=== PATIENT | male | born 1990 | race Caucasian/White ===

== ENCOUNTER 2016-10-04 13:50 | Day surgery (SDC) | payer OTHER ==
--- NOTE | 2016-10-04 14:41 | EDM.PDOC ---
ED HPI Trauma - General Chief Complaint: Upper Extremity Injury/Pain Stated Complaint: RIGHT HAND INJURY Time Seen by Provider: 10/04/16 14:28 Source: Reports: Patient History Limitations: Reports: No limitations - History of Present Illness INITIAL COMMENTS - FREE TEXT/NARRATIVE: 26-year-old male presents the ED with an acute injury to his right thumb. Of note he is right-hand dominant. Patient was at [place] on a work[place]. He reports that his right thumb became impinged between the hemant and a piece of toast and pipe IE crushtype injury. This resulted in a large laceration on the radial aspect of the thumb. Apparently the bone is easily visible suggesting an open fracture. Patient attended the occupational health clinic until a [place] and he did receive a tetanus toxoid was referred to the ED for further management. Symptom Onset Date: 10/04/16 Symptom Onset Time: 11:00 Occurred When: this morning Occurred Where: work Method of Injury: direct blow (Crushtype injury) Severity: moderate Pain/Injury Location: Reports: upper extremity, right (Right thumb) Consciousness: Reports: no loss of consciousness, remembers incident Associated Symptoms: Reports: no other symptoms Allergies/ADRs: Allergies No Known Allergies Allergy (Verified 10/04/16 13:56) Past Medical History - Past Health History Medical/Surgical History: Denies Medical/Surgical History Social & Family History - Tobacco Use Smoking Status *Q: Former Smoker - Caffeine Use Caffeine Use: Reports: Coffee - Recreational Drug Use Recreational Drug Use: No - Living Situation & Occupation Occupation: employed Review of Systems - Review of Systems Review Of Systems: See Below Constitutional: Reports: no symptoms Eyes: Reports: no symptoms Ears: Reports: no symptoms Nose: Reports: no symptoms Mouth/Throat: Reports: no symptoms Respiratory: Reports: No Symptoms Cardiovascular: Reports: no symptoms GI/Abdominal: Reports: No symptoms Genitourinary: Reports: no symptoms Musculoskeletal: Reports: no symptoms Skin: Reports: no symptoms Neurological: Reports: No Symptoms Psychiatric: Reports: no symptoms Trauma Exam - Physical Exam Exam: See Below Exam Limited By: No limitations General Appearance: Reports: alert, WD/WN, no apparent distress Head: Reports: atraumatic, normocephalic Throat/Mouth: Reports: Normal inspection, Normal lips, Normal teeth, Normal oropharynx, Other (Is a little dry and coated. He indicates he is not a diabetic much today.) Neck: Reports: non-tender, full range of motion, normal alignment Respiratory Exam: Reports: no respiratory distress, lungs clear, normal breath sounds, no accessory muscle use Cardiovascular: Reports: normal peripheral pulses, regular rate, rhythm, no edema, no murmur GI/Abdominal: Reports: normal bowel sounds, soft, non tender, no organomegaly Back: Reports: full range of motion. Denies: CVA tenderness (R), CVA tenderness (L) Extremities: Reports: no evidence of injury, other (Patient has a multilayered bandages on his right thumb. These were relieve removed after x-ray is completed.) Skin: Reports: Normal color, Warm/dry - [place] Coma Score Best Eye Response ([place]): (4) open spontaneously Best Verbal Response ([place]): (5) oriented Best Motor Response ([place]): (6) obeys commands Suzy Total: 15 Course - Vital Signs Last Recorded V/S: Last Vital Signs Temp 36.7 C 10/04/16 13:56 Pulse 64 10/04/16 13:56 Resp 18 10/04/16 16:24 BP 131/93 H 10/04/16 13:56 Pulse Ox 99 10/04/16 16:24 - Orders/Labs/Meds Orders: Active Orders 24 hr Category Date Time Status Admission Status [Patient Status] [ADT] Routine ADT 10/04/16 18:00 Ordered Peripheral IV Care [RC] . DIRECTED Care 10/04/16 15:15 Active Fingers Thumb Rt F5 [CR] Stat Exams 10/04/16 14:32 Taken Dextrose 5%-0.9% NaCl [Dextrose 5%-Normal Saline] 1,000 Med 10/04/16 15:45 Active ml IV ASDIRECTED Sodium Chloride 0.9% [Saline Flush] Med 10/04/16 15:14 Active 10 ml FLUSH ASDIRECTED PRN Peripheral IV Insertion Adult [OM.PC] Stat Oth 10/04/16 15:14 Ordered Schedule Procedure [COMM] Stat Oth 10/04/16 18:01 Ordered Medication Orders Dextrose/Sodium Chloride (Dextrose 5%-Normal Saline) 1,000 mls @ 999 mls/hr IV ASDIRECTED FRANTZ Last Admin: 10/04/16 16:38 Dose: 999 mls/hr Sodium Chloride (Saline Flush) 10 ml FLUSH ASDIRECTED PRN PRN Reason: Keep Vein Open Last Admin: 10/04/16 16:45 Dose: 10 ml Meds: Medications Generic Name Dose Route Start Last Admin Trade Name Freq PRN Reason Stop Dose Admin Dextrose/Sodium Chloride 1,000 mls @ 999 mls/hr 10/04/16 15:45 10/04/16 16:38 Dextrose 5%-Normal Saline IV 999 mls/hr ASDIRECTED FRANTZ Administration Sodium Chloride 10 ml 10/04/16 15:14 10/04/16 16:45 Saline Flush FLUSH 10 ml ASDIRECTED PRN Administration Keep Vein Open Discontinued Medications Generic Name Dose Route Start Last Admin Trade Name Freq PRN Reason Stop Dose Admin Hydromorphone HCl 0.5 mg 10/04/16 15:31 10/04/16 16:42 Dilaudid IVPUSH 10/04/16 15:32 0.5 mg ONETIME ONE Administration Cefazolin Sodium/Dextrose 2 gm 50 mls @ 100 mls/hr 10/04/16 15:15 10/04/16 16 :46 / Premix IV 10/04/16 15:44 100 mls/hr ONETIME ONE Administration Lidocaine HCl Confirm 10/04/16 16:06 Lidocaine 1% Administered 10/04/16 16:07 Dose 2 ml .ROUTE .STK-MED ONE Metoclopramide HCl 7.5 mg 10/04/16 15:31 10/04/16 16:40 Reglan IVPUSH 10/04/16 15:32 7.5 mg ONETIME ONE Administration - Radiology Interpretation Free Text/Narrative:: 26-year-old male presents the ED for for evaluation of work related injury. Suffered a crushtype injury to his distal right thumb this morning at about 11: 00. Pain is an open laceration with bone visible and suspicion of open fracture. The initially is bandaged up and I will leave it bandaged as it is actively bleeding until after x-rays have been completed. The wound will then be explored. - Re-Assessments/Exams Free Text/Narrative Re-Assessment/Exam: 10/04/16 15:16 x-ray reveals a comminuted fracture of the proximal phalanx right thumb. It is slight displacement volarly of some of the fragments. I did contact Dr. Krishnamurthy today application services manager orthopedic surgeon to see if he has interest in fixing this. When I removed the bandage there is an actively bleeding 2 cm laceration at the site of fracture of the ulnar aspect of the thumb. It is actively bleeding. New dressings will be applied. Also now have a peripheral IV started and he will be given Ancef 2 g IV. 10/04/16 15:32 Dr Montgomery called back and has agreed to repair the thumb. Plan will be to proceed with operative intervention after he is done his clinic which will be about an hour and a half. Patient hasn't ate at all today. I will therefore had an IV of D5 normal saline at open. We'll give him 0.5 mg Dilaudid IV for pain relief and Reglan 7.5 mg IV as well as the Ancef as mentioned above. Departure - Departure Time of Disposition: 17:00 Disposition: DC/Tfer to [facility] Condition: fair Clinical Impression: Open fracture of phalanx of right thumb Qualifiers: Encounter type: initial encounter Phalanx: proximal Fracture alignment: displaced Qualified Code(s): S62.511B - Displaced fracture of proximal phalanx of right thumb, initial encounter for open fracture - My Orders Last 24 Hours: My Active Orders 10/04/16 14:32 Fingers Thumb Rt F5 [CR] Stat 10/04/16 15:14 Sodium Chloride 0.9% [Saline Flush] 10 ml FLUSH ASDIRECTED PRN Peripheral IV Insertion Adult [OM.PC] Stat 10/04/16 15:15 Peripheral IV Care [RC] . DIRECTED 10/04/16 15:45 Dextrose 5%-0.9% NaCl [Dextrose 5%-Normal Saline] 1,000 ml IV ASDIRECTED 10/04/16 18:00 Admission Status [Patient Status] [ADT] Routine - Assessment/Plan Last 24 Hours: My Active Orders 10/04/16 14:32 Fingers Thumb Rt F5 [CR] Stat 10/04/16 15:14 Sodium Chloride 0.9% [Saline Flush] 10 ml FLUSH ASDIRECTED PRN Peripheral IV Insertion Adult [OM.PC] Stat 10/04/16 15:15 Peripheral IV Care [RC] . DIRECTED 10/04/16 15:45 Dextrose 5%-0.9% NaCl [Dextrose 5%-Normal Saline] 1,000 ml IV ASDIRECTED 10/04/16 18:00 Admission Status [Patient Status] [ADT] Routine
[2016-10-04] MEDS ORDERED: Sodium Chloride 0.9% 10 ML Syringe FLUSH PRN (15:14)
[2016-10-04] MEDS ORDERED: ceFAZolin 2 GM in Premix Bag 1 BAG IV ONE (15:15)
[2016-10-04] MEDS ORDERED: HYDROmorphone 0.5 MG/0.5 ML Syringe IVPUSH ONE (15:31)
[2016-10-04] MEDS ORDERED: Metoclopramide 10 MG/2 ML SDV IVPUSH ONE (15:31)
[2016-10-04] MEDS ORDERED: Dextrose 5%-0.9% NaCl 1,000 ML IV SCH (15:45)
[2016-10-04] MEDS ORDERED: Lidocaine 1% 2 ML SDV ONE (16:06)
--- NOTE | 2016-10-04 16:23 | PCM.PREANE ---
Preanesthetic Assessment - Procedure Proposed Procedure: I&D and ORIF/Pinning right thumb - Anesthesia/Transfusion/Family Hx Anesthesia History: No Prior Anesthesia Family History of Anesthesia Reaction: No - Review of Systems General: No Symptoms Pulmonary: No Symptoms Cardiovascular: No Symptoms Gastrointestinal: No symptoms Neurological: No Symptoms Other: Reports: None - Physical Assessment NPO Status Date: 10/03/16 NPO Status Time: 21:00 O2 Sat by Pulse Oximetry: 99 Respiratory Rate: 18 Vital Signs: Last Vital Signs Temp 36.7 C 10/04/16 13:56 Pulse 64 10/04/16 13:56 Resp 18 10/04/16 13:56 BP 131/93 H 10/04/16 13:56 Pulse Ox 99 10/04/16 13:56 Height: 1.75 m Weight: 83.915 kg ASA Class: 1 Mental Status: Alert & Oriented x3 Airway Class: Mallampati = 1 Dentition: Reports: [place](s) (2 caps on back molars lower right) Thyro-Mental Finger Breadths: 3 Mouth Opening Finger Breadths: 3 ROM/Head Extension: Full Lungs: Clear to auscultation, Normal respiratory effort Cardiovascular: Regular Rate, Regular Rhythm, No Murmurs - Allergies Allergies/Adverse Reactions: Allergies Allergy/AdvReac Type Severity Reaction Status Date / Time No Known Allergies Allergy Verified 10/04/16 13:56 - Acknowledgements Anesthesia Type Planned: LILI Pt an Appropriate Candidate for the Planned Anesthesia: Yes Alternatives and Risks of Anesthesia Discussed w Pt/Guardian: Yes Pt/Guardian Understands and Agrees with Anesthesia Plan: Yes PreAnesthesia Questionnaire - Past Health History Medical/Surgical History: Denies Medical/Surgical History - SUBSTANCE USE Smoking Status *Q: Former Smoker (Quit 2013 after 8 yr pack hx) Tobacco Use Within Last Twelve Months: No Second Hand Smoke Exposure: No Days Per Week of Alcohol Use: 0 (endorses 1 alcoholic beverage per month or less ) Recreational Drug Use History: No - CURRENT (IN HOUSE) MEDS Current Meds: Current Medications Dextrose/Sodium Chloride (Dextrose 5%-Normal Saline) 1,000 mls @ 999 mls/hr IV ASDIRECTED FRANTZ Sodium Chloride (Saline Flush) 10 ml FLUSH ASDIRECTED PRN PRN Reason: Keep Vein Open Discontinued Medications Hydromorphone HCl (Dilaudid) 0.5 mg IVPUSH ONETIME ONE Stop: 03/22/17 15:32 Cefazolin Sodium/Dextrose 2 gm (/ Premix) 50 mls @ 100 mls/hr IV ONETIME ONE Stop: 10/04/16 15:44 Lidocaine HCl (Lidocaine 1%) Confirm Administered Dose 2 ml .ROUTE .STK-MED ONE Stop: 10/04/16 16:07 Metoclopramide HCl (Reglan) 7.5 mg IVPUSH ONETIME ONE Stop: 10/04/16 15:32 Preanesthetic Assessment - PHYSICAL ASSESSMENT O2 Sat by Pulse Oximetry: 99 RR: 18 Vital Signs: Last Vital Signs Temp 36.7 C 10/04/16 13:56 Pulse 64 10/04/16 13:56 Resp 18 10/04/16 13:56 BP 131/93 H 10/04/16 13:56 Pulse Ox 99 10/04/16 13:56 Height: 1.75 m Weight: 83.915 kg - ALLERGIES Allergies/Adverse Reactions: Allergies Allergy/AdvReac Type Severity Reaction Status Date / Time No Known Allergies Allergy Verified 10/04/16 13:56
--- NOTE | 2016-10-04 18:08 | PCM.CONS ---
H&P History of Present Illness - General Date of Service: 10/04/16 Source of Information: Patient History Limitations: Reports: No limitations - History of Present Illness Initial Comments - Free Text/Narative: This is a 26 yo right hand dominant male that comes in after injury to the right thumb when it was crushed at an oil work over rig between two metal objects. Patient denies any previous pain or injury to the hand prior to this. He was wearing cotton gloves at the time of injury. He was taken to the emergency room where he was found to have an open fracture of his right thumb and we were consulted at that time. Patient was given tetanus update and antibiotics in the emergency room. Hand Pain Score (Numeric/FACES): 10 - Related Data Allergies/Adverse Reactions: Allergies Allergy/AdvReac Type Severity Reaction Status Date / Time No Known Allergies Allergy Verified 10/04/16 13:56 Past Medical History - Past Health History Medical/Surgical History: Denies Medical/Surgical History Social & Family History - Tobacco Use Smoking Status *Q: Former Smoker Second Hand Smoke Exposure: No - Caffeine Use Caffeine Use: Reports: Coffee - Alcohol Use Days Per Week of Alcohol Use: 0 (endorses 1 alcoholic beverage per month or less ) - Recreational Drug Use Recreational Drug Use: No - Living Situation & Occupation Occupation: employed H&P Review of Systems - Review of Systems: Review Of Systems: ROS reveals no pertinent complaints other than HPI. Exam - Exam Exam: See Below - Vital Signs Vital Signs: Last Vital Signs Temp 36.7 C 10/04/16 13:56 Pulse 64 10/04/16 13:56 Resp 18 10/04/16 16:24 BP 131/93 H 10/04/16 13:56 Pulse Ox 99 10/04/16 16:24 Weight: 83.915 kg - Exam General: alert, oriented Lungs: Normal respiratory effort Cardiovascular: regular rate Physical Exam Comments:: laceration noted from the dorsal lateral ulnar aspect of the thumb to the volar IP joint measuring 4cm in length, unable to extend IP joint of the thumb, good cap refill less than 2 seconds and sensation intact to light touch to the tip of the thumb Consult PN Assessment/Plan Problem List Initiated/Reviewed/Updated: Yes My Orders last 24 hours: My Active Orders 10/04/16 18:01 Schedule Procedure [COMM] Stat Plan: A: Open right thumb proximal phalanx fracture P: At this time secondary to the crush type injury with an open fracture I would recommend irrigation and debridement with operative fixation of the proximal phalanx fracture. I discussed with them the risks, benefits, complications, alternatives at this time and they are in agreement. We will proceed with the surgery as planned. Discussed with them that we could possible use plate and screws or removal pins for the fracture but we will know more during surgery. Patient will be in a splint post operatively and will elevate extremity after surgery. Pain medication and antibiotics will be prescribed for the patient post operatively. We will see the patient back in clinic in about 1 week.
[2016-10-04] MEDS ORDERED: Midazolam 1 MG/ML 2 ML SDV ONE (18:33)
[2016-10-04] MEDS ORDERED: Lidocaine 1% 6 ML ONE (18:33)
[2016-10-04] MEDS ORDERED: Propofol 200 MG/20 ML SDV ONE ×5 (18:33→21:23)
[2016-10-04] MEDS ORDERED: fentaNYL 100 MCG/2 ML SDV ONE (18:33)
[2016-10-04] MEDS ORDERED: ceFAZolin 1 GM Vial ONE (18:33)
[2016-10-04] MEDS ORDERED: Bupivacaine 0.25% 30 ML SDV ONE (18:58)
[2016-10-04] MEDS ORDERED: Lidocaine 1% 30 ML SDV ONE (18:58)
[2016-10-04] MEDS ORDERED: fentaNYL 100 MCG/2 ML SDV IVPUSH PRN (21:26)
[2016-10-04] MEDS ORDERED: Lactated Ringers 1,000 ML ONE (21:58)
--- NOTE | 2016-10-04 22:04 | PCM.POSTAN ---
POST ANESTHESIA ASSESSMENT - MENTAL STATUS Mental Status: alert, oriented - VITAL SIGNS Pulse Rate: 84 SaO2: 97 Resp Rate: 13 Blood Pressure: 130/79 Temperature: 36.2 C - RESPIRATORY Respiratory Status: respiratory rate WNL, airway patent, O2 saturation stable - CARDIOVASCULAR CV Status: pulse rate WNL, blood pressure stable - GASTROINTESTINAL GI Status: no symptoms - PAIN Pain Score: 0 - POST OP HYDRATION Hydration Status: adequate & stable
[2016-10-04 22:54] VITALS: BP 113/64
--- NOTE | 2016-10-05 02:35 | PCM48HPAN ---
Post Anesthesia Note - EVALUATION WITHIN 48HRS OF ANESTHETIC Vital Signs in Normal Range: Yes Patient Participated in Evaluation: Yes Respiratory Function Stable: Yes Airway Patent: Yes Cardiovascular Function Stable: Yes Hydration Status Stable: Yes Pain Control Satisfactory: Yes Nausea and Vomiting Control Satisfactory: Yes Mental Status Recovered: Yes
--- NOTE | 2016-10-05 12:21 | CR ---
Right thumb: Three views of the right thumb were obtained. Fracture identified within the distal aspect of the proximal phalanx. Additional fracture line seen to extend vertically through other portions of this phalanx. Soft tissue injury is also noted. Distal phalanx and metacarpal appear intact. Impression: 1. Mildly comminuted fracture within the proximal phalanx of the thumb with overlying soft tissue injury. Diagnostic code #3
--- NOTE | 2016-10-05 12:21 | CR ---
Right thumb: Multiple fluoroscopic spot views were obtained of the right thumb. Study obtained utilizing C-arm device. Study shows placement of plate and screws within previous fracture. Final 2 films shows alignment that appears close to anatomic. Fluoroscopy time given as 72.3 seconds. Impression: 1. Operative exam showing fixation of previous right thumb fracture. Diagnostic code #2
--- NOTE | 2016-10-06 21:37 | PCM.OPNOTE ---
- General Post-Op/Procedure Note Date of Surgery/Procedure: 10/03/16 Operative Procedure(s): irrigation and debridement of right thumb proximal phalanx open fracture with open reduction internal fixation and extensor tendon repair Pre Op Diagnosis: open right thumb proximal phalanx fracture Post-Op Diagnosis: same with extensor tendon laceration Anesthesia Technique: Local, MAC Primary Surgeon: Chito Montgomery Anesthesia Provider: Luis Venegas Lei Seller: Richa Tirado EBL in mLs: 50 Complications: None Condition: Good
--- NOTE | 2016-10-10 13:18 | OR ---
DATE OF OPERATION: 10/04/2016 SURGEON: Chito Montgomery MD OPERATION PERFORMED: Irrigation and debridement of soft tissue, muscle, and bone of right thumb proximal phalanx open fracture with open reduction and internal fixation of extensor tendon repair. PREOPERATIVE DIAGNOSIS: Open right thumb proximal phalanx fracture. POSTOPERATIVE DIAGNOSIS: Open right thumb proximal phalanx fracture with extensor tendon laceration. ANESTHESIA: Local MAC. ANESTHESIA PROVIDER: Luis Venegas MD. MANAGER OF CLINICAL: Richa Tirado PA-C. ESTIMATED BLOOD LOSS: 50 mL. COMPLICATIONS: None. CONDITION: Stable. DESCRIPTION OF PROCEDURE: The patient was identified in the preop holding area, proper site was marked and identified by the surgeon. The patient was taken back to the operating theater where after adequate anesthesia, the patient's right upper extremity had a nonsterile tourniquet applied and was then sterilely prepped and draped in the usual sterile fashion. OR time-out was performed. The patient received 2 g of IV Ancef. At this time, on examination, the patient was noted to have extensor tendon laceration of the extensor pollicis longus near the IP joint. The patient also had a large laceration starting on the ulnar aspect of the IP joint of the right thumb, extending all the way to the volar aspect just distal to the IP joint roughly 3 cm in length. The fracture site was easily viewed through this. At this time, the open area was extended to a dorsal lateral approach on the ulnar aspect of the right thumb. Next, a nonviable subcutaneous tissue as well as nonviable bone was removed at this time, and 3 L of normal saline was irrigated through the wound bed with the curette and taken to the soft tissue. At this time, it was found to be adequately cleansed. New OR drapes were placed as well as gloves were changed until the instruments were passed off. At this time, the visualization was taken down to the fracture site. There was noted to be comminution of the ulnar aspect of the intercondylar split of the proximal phalanx fracture. The radial side was 1 piece, we were able to K-wire this into place in a near anatomic reduction. Next, it was noted that there was bone loss from the time of injury on the radial side of the intercondylar split. At this time, it was peeled back up with a 1/7 [place] locking plate. Locking screws were then placed, and then nonlocking screws were placed in the shaft. The patient was noted to have extension of the fracture on the dorsal aspect of a nondisplaced dorsal fracture of the proximal phalanx as well. At this time, it was decided that we were going to be unable to fully plate this from this position and secondary to the blood flow and the stability of that other fracture at this time, it was decided that the fracture would not need fixation. At this time, attention was turned to fixation of the extensor tendon and the extensor tendon had enough excursion to the previous laceration site. At this time, using 3-0 Ethibond, we were able to suture using quarter repair with 4 strands to get it repaired past the IP joint over the top of the fracture. Final fluoroscopy film showed adequate fixation of the previous fracture site. We did place deep mineralized bone matrix in the bony down the metaphyseal defect just below the cartilaginous surface making sure not to extrude any into the joint. At this time, the skin was closed with 4-0 nylon and was placed in a radial thumb spica splint. The patient will follow up in the clinic in 1 weeks' time. SEMAJ /[id number]
== END 2016-10-04 22:48 | disposition home or self-care (01) ==
LOC: JD.ED 13:50 → EDBD 13:50 → JD.SDS 16:02 → MERGE 16:02 → JD.SDS 22:48
PROVIDERS: ATTEND Orthopaedic Surgery
PROC: 0LQ70ZZ Repair Right Hand Tendon, Open Approach (ICD-10-PCS; principal; 2016-10-04)
PROC: 0PSR04Z Reposition Right Thumb Phalanx with Internal Fixation Device, Open Approach (ICD-10-PCS; 2016-10-04)
DX: S62.514B Nondisplaced fracture of proximal phalanx of right thumb, initial encounter for open fracture (principal); S66.221A Laceration of extensor muscle, fascia and tendon of right thumb at wrist and hand level, initial encounter; W23.0XXA Caught, crushed, jammed, or pinched between moving objects, initial encounter; Y93.89 Activity, other specified; Y92.65 Oil rig as the place of occurrence of the external cause; Y99.0 Civilian activity done for income or pay; Z87.891 Personal history of nicotine dependence
CPT/HCPCS: 11012; 26418; 26735; 73140; 76000; 96361; 96365; 96375; 99285; C1713; C1776; J0690; J1170; J2250; J2765; J3010; J7042; J7050; J7120; 01830; J2704; J3490

== ENCOUNTER 2021-04-16 21:37 | Emergency (ER) | payer BC, OTHER ==
[2021-04-16 21:51] VITALS: BP 159/101; PULSE 95
[2021-04-16 22:47] LABS: ACETAMINOPHEN 0 ug/mL (10-30)
--- NOTE | 2021-04-17 01:09 | EDM.PDOCBH ---
ED HPI GENERAL MEDICAL PROBLEM - General Chief Complaint: Behavioral/Psych Stated Complaint: POSS OD Time Seen by Provider: 04/17/21 00:43 Source of Information: Reports: Patient History Limitations: Reports: No Limitations - History of Present Illness INITIAL COMMENTS - FREE TEXT/NARRATIVE: Blake is a very pleasant 31-year-old gentleman who now presents the ED stating that he took 81 tablets of fluoxetine (Prozac) between 18:50 and 19:45 last night, 04/16/2021. He states that he took these pills with water, no alcohol. When asked why he did it, he shrugged and said that he did not know, that he hoped that it would improve his depression. He states that he did not think that it would be a potentially fatal dose, and states that it was not a suicide attempt. The patient states that he attempted suicide by hanging when 16 years old, however, he states that he was not psychiatrically hospitalized at that time, only referred to a therapist. He states that he has been psychiatrically hospitalized only once, when he was 17 years old, in order to get his depression and bipolar affective disorder under control. The patient states that he has a history of bipolar affective disorder, major depression, and anxiety, and that he discontinued his fluoxetine this past December. The tablets that he took last night were left over from his previous prescript ion. Here in the ED, the patient's initial BP is found to be modestly elevated at 159/101, otherwise, he is hemodynamically stable, afebrile, saturating 96% on room air. He appears to be comfortable, in no acute distress. Other than being evasive about why he took the pills, he is cooperative. The patient states that he lost his sense of smell this past , 04/14/2021. Otherwise, the patient denies having a recent fever, chills, sore throat, ear pain, nasal or sinus congestion, cough, dyspnea, chest pain, palpitations, nausea, vomiting, constipation, diarrhea, abdominal pain, urinary symptoms, recent weight gain or weight loss, recent bloody bowel movements or black bowel movements, recent joint aches, headaches, or rashes. The patient does not have a PCP or Psychiatrist. He received a single [employer] COVID vaccination. - Related Data Allergies Allergy/AdvReac Type Severity Reaction Status Date / Time No Known Allergies Allergy Verified 04/16/21 21:51 Home Meds: Home Meds . [No Known Home Meds] 11/17/14 [History] Past Medical History Psychiatric History: Reports: Anxiety (untreated), Bipolar (untreated), Depression (major, untreated) - Past Surgical History Musculoskeletal Surgical History: Reports: Amputation (partial right thumb) Social & Family History - Tobacco Use Tobacco Use Status *Q: Former Tobacco User Years of Tobacco use: 8 Packs/Tins Daily: 0.5 Month/Year Tobacco Last Used: Quit 2012 Tobacco Use Comment: Started smoking 2004 - Caffeine Use Caffeine Use: Reports: None - Alcohol Use Alcohol Use History: Yes Alcohol Use Frequency: Rarely - Recreational Drug Use Recreational Drug Use: Yes Drug Use in Last 12 Months: Yes Recreational Drug Type: Reports: Marijuana/Hashish (smokes 2-3x/week) - Living Situation & Occupation Living situation: Reports: (), Alone Occupation: Employed ([employer]) ED ROS GENERAL - Review of Systems Review Of Systems: Comprehensive ROS is negative, except as noted in HPI. ED EXAM, BEHAVIORAL HEALTH - Physical Exam Exam: See Below Exam Limited By: No Limitations General Appearance: Alert, WD/WN, No Apparent Distress Eye Exam: Bilateral Eye: EOMI, Normal Inspection Ears: Normal External Exam, Hearing Grossly Normal Nose: Normal Inspection Throat/Mouth: Normal Inspection, Normal Lips, Normal Voice, No Airway Compromise Head: Atraumatic, Normocephalic Neck: Normal Inspection, Full Range of Motion Respiratory/Chest: No Respiratory Distress, Lungs Clear, Normal Breath Sounds, No Accessory Muscle Use Cardiovascular: Normal Peripheral Pulses, Regular Rate, Rhythm, No Edema, No Gallop, No JVD, No Murmur, No Rub GI/Abdominal: Normal Bowel Sounds, Soft, Non-Tender, No Organomegaly, No Distention, No Abnormal Bruit, No Mass Back Exam: Normal Inspection, Full Range of Motion, NT Extremities: Normal Inspection, Normal Range of Motion, No Pedal Edema, Normal Capillary Refill Neurological: Alert, Normal Cognition, No Motor/Sensory Deficits, Oriented x 3 Psychiatric: Normal Affect Skin Exam: Warm, Dry, Intact, Normal color, No rash #1 Interpretation EKG Date: 04/16/21 Time: 22:20 Rhythm: NSR Rate (Beats/Min): 91 [place]: Normal P-Wave: Present QRS: Other (Late transition) ST-T: Normal QT: Normal Comparison: NA - No Prior EKG COURSE, BEHAVIORAL HEALTH COMP - Course Vital Signs: Last Vital Signs Temp 36.6 C 04/16/21 21:50 Pulse 95 04/16/21 21:50 Resp 16 04/16/21 21:50 BP 159/101 H 04/16/21 21:50 Pulse Ox 96 04/16/21 21:50 Orders, Labs, Meds: Laboratory Tests 04/16/21 04/16/21 04/16/21 Range/Units 22:09 22:09 22:09 WBC 8.40 (4.23-9.07) K/mm3 RBC 5.26 (4.63-6.08) M/mm3 Hgb 16.3 (13.7-17.5) gm/dl Hct 46.1 (40.1-51.0) % MCV 87.6 (79.0-92.2) fl MCH 31.0 (25.7-32.2) pg MCHC 35.4 (32.2-35.5) g/dl RDW Std Deviation 38.8 (35.1-43.9) fL Plt Count 318 (163-337) K/mm3 MPV 9.2 L (9.4-12.3) fl Neut % (Auto) 61.3 (34.0-67.9) % Lymph % (Auto) 25.6 (21.8-53.1) % [place] % (Auto) 11.2 (5.3-12.2) % Eos % (Auto) 1.3 (0.8-7.0) Baso % (Auto) 0.2 (0.1-1.2) % Neut # (Auto) 5.15 (1.78-5.38) K/mm3 Lymph # (Auto) 2.15 (1.32-3.57) K/mm3 [place] # (Auto) 0.94 H (0.30-0.82) K/mm3 Eos # (Auto) 0.11 (0.04-0.54) K/mm3 Baso # (Auto) 0.02 (0.01-0.08) K/mm3 Sodium 140 (136-145) mEq/L Potassium 3.2 L (3.5-5.1) mEq/L Chloride 102 (98-107) mEq/L Carbon Dioxide 29 (21-32) mEq/L Anion Gap 12.2 (5-15) BUN 10 (7-18) mg/dL Creatinine 1.1 (0.7-1.3) mg/dL Est Cr Clr Drug Dosing TNP Estimated GFR (MDRD) > 60 (>60) mL/min BUN/Creatinine Ratio 9.1 L (14-18) Glucose 110 H (70-99) mg/dL Calcium 8.8 (8.5-10.1) mg/dL Total Bilirubin 0.3 (0.2-1.0) mg/dL AST 14 L (15-37) U/L ALT 22 (16-63) U/L Alkaline Phosphatase 70 (46-116) U/L Total Protein 7.9 (6.4-8.2) g/dl Albumin 4.3 (3.4-5.0) g/dl Globulin 3.6 gm/dL Albumin/Globulin Ratio 1.2 (1-2) TSH 3rd Generation 2.665 (0.358-3.74) uIU/mL Salicylates 1.1 L (2.8-20) mg/dL Urine Opiates Screen (PGQFSK=774) Ur Buprenorphine Scrn (CUTOFF=10) Ur Oxycodone Screen (CDB7FN=533) Urine Methadone Screen (DRB2PD=194) Ur Propoxyphene Screen (HJYSNC=547) Acetaminophen 0 L (10-30) ug/mL Ur Barbiturates Screen (KYGPRD=164) Ur Tricyclics Screen (NNJDEU=212) Ur Phencyclidine Scrn (CUTOFF=25) Ur Amphetamine Screen (ZKEJKZ=770) U Methamphetamines Scrn (CWRZFO=074) U Benzodiazepines Scrn (NJEEKA=834) U Cocaine Metab Screen (KMBFNP=146) U Marijuana (THC) Screen (CUTOFF=50) Ethyl Alcohol 0.00 (0.00) gm% SARS-CoV-2 RNA (PATRICA) (NEGATIVE) 04/16/21 04/17/21 Range/Units 23:15 05:54 WBC (4.23-9.07) K/mm3 RBC (4.63-6.08) M/mm3 Hgb (13.7-17.5) gm/dl Hct (40.1-51.0) % MCV (79.0-92.2) fl MCH (25.7-32.2) pg MCHC (32.2-35.5) g/dl RDW Std Deviation (35.1-43.9) fL Plt Count (163-337) K/mm3 MPV (9.4-12.3) fl Neut % (Auto) (34.0-67.9) % Lymph % (Auto) (21.8-53.1) % [place] % (Auto) (5.3-12.2) % Eos % (Auto) (0.8-7.0) Baso % (Auto) (0.1-1.2) % Neut # (Auto) (1.78-5.38) K/mm3 Lymph # (Auto) (1.32-3.57) K/mm3 [place] # (Auto) (0.30-0.82) K/mm3 Eos # (Auto) (0.04-0.54) K/mm3 Baso # (Auto) (0.01-0.08) K/mm3 Sodium (136-145) mEq/L Potassium (3.5-5.1) mEq/L Chloride (98-107) mEq/L Carbon Dioxide (21-32) mEq/L Anion Gap (5-15) BUN (7-18) mg/dL Creatinine (0.7-1.3) mg/dL Est Cr Clr Drug Dosing Estimated GFR (MDRD) (>60) mL/min BUN/Creatinine Ratio (14-18) Glucose (70-99) mg/dL Calcium (8.5-10.1) mg/dL Total Bilirubin (0.2-1.0) mg/dL AST (15-37) U/L ALT (16-63) U/L Alkaline Phosphatase (46-116) U/L Total Protein (6.4-8.2) g/dl Albumin (3.4-5.0) g/dl Globulin gm/dL Albumin/Globulin Ratio (1-2) TSH 3rd Generation (0.358-3.74) uIU/mL Salicylates (2.8-20) mg/dL Urine Opiates Screen Negative (QTPWVZ=990) Ur Buprenorphine Scrn Negative (CUTOFF=10) Ur Oxycodone Screen Negative (ZOS0HV=573) Urine Methadone Screen Negative (HFY4IR=841) Ur Propoxyphene Screen Negative (TDPUUO=571) Acetaminophen (10-30) ug/mL Ur Barbiturates Screen Negative (UNFCQB=329) Ur Tricyclics Screen Negative (LGMFPG=334) Ur Phencyclidine Scrn Negative (CUTOFF=25) Ur Amphetamine Screen Negative (MDWPMG=928) U Methamphetamines Scrn Negative (EOOAQX=735) U Benzodiazepines Scrn Presumptive positive H (LGYAFH=568) U Cocaine Metab Screen Negative (HNSITD=285) U Marijuana (THC) Screen Presumptive positive H (CUTOFF=50) Ethyl Alcohol (0.00) gm% SARS-CoV-2 RNA (PATRICA) Positive H (NEGATIVE) Medical Clearance: 04/17/21 01:07 I spoke with Poison Control at 01:05. They had already been contacted. They stated that the Prozac would peak at 6 to 8 hours = 01:00 to 03:00, but because the patient is not showing any signs at this time, they suspect that he did not actually take 81 tablets. A standard psychiatric medical clearance panel + a swab for the SARS-CoV-2 virus was ordered at triage. The patient's CBC is unremarkable. His CMP is remarkable for mild hyponatremia of 132 and mild hyperglycemia of 110, with remainder of his CMP being unremarkable. His TSH is within normal limits at 2.665. His salicylate level is within normal limits at 1.1. His acetaminophen level is 0. His EtOH level is 0.00. His swab for the SARS-CoV-2 virus is positive. The patient has not yet provided a urine sample for the urine drug screen. Based on the patient's BMI, he is a candidate for an infusion of the monoclonal antibody Regen-Cov. We discussed that at length, including that it is an emergency use authorization medication intended to decrease the likelihood of patients diagnosed with COVID-19 from developing severe symptoms or , and that it does not treat current symptoms. I explained that Regen-Cov is still under investigation, that it is not fully FDA approved, and that the potential benefits and risks of the medication are not fully known. The patient was notified that if he receives Regen-Cov, that it may decrease his immune response to a COVID vaccination, should he decide to get it after he recovers from his current illness. I explained that there is a possibility that he could have an allergic reaction either during or after the infusion, as well as brief pain, b leeding, bruising of the skin, soreness, swelling, and possible infection at the infusion site. Other side effects could occur. I discussed that there are other potential treatment options that are currently not FDA approved to treat COVID-19. The patient was notified that the infusion takes about half an hour, after which he would be expected to remain in the ED for another hour to observe for possible side effects. He was offered the "Patient and caregiver ANDREW TrejoCov fact sheet" to read and review. All questions were answered. The patient expressed understanding, but elected to NOT proceed with the infusion. 04/17/21 06:16 The patient's urine drug screen is positive for benzodiazepines and marijuana. We will endeavor to find a psychiatric bed for the patient. 04/17/21 08:33 The patient has done well overnight. Attempting to find a psychiatric bed for the patient, [facility] is full, [facility] does not except COVID-19 patients, [facility] is full, and [facility] does not have the time to accommodate a COVID-19 patient. We will contact [facility]. Departure - Departure Time of Disposition: 12:00 Disposition: Home, Self-Care 01 Condition: Good Clinical Impression: Suicide attempt by other psychotropic drug overdose, COVID-19 - Discharge Information *PRESCRIPTION DRUG MONITORING PROGRAM REVIEWED*: Not Applicable *COPY OF PRESCRIPTION DRUG MONITORING REPORT IN PATIENT ALICIA: Not Applicable Referrals: PCP,None [Primary Care Provider] - Forms: ED Department Discharge Sepsis Event Note (ED) - Evaluation Sepsis Screening Result: No Definite Risk
== END 2021-04-17 12:02 | disposition home or self-care (01) ==
LOC: JD.ED 21:37
DX: T43.222A Poisoning by selective serotonin reuptake inhibitors, intentional self-harm, initial encounter (principal); U07.1 COVID-19; Z87.891 Personal history of nicotine dependence
CPT/HCPCS: 36415; 80053; 80143; 80179; 80306; 80307; 84443; 85025; 93005; 99285-25; U0002

== ENCOUNTER 2021-09-13 12:25 | Emergency (ER) | payer BC, OTHER ==
[2021-09-13] MEDS ORDERED: Sodium Chloride 0.9% 1,000 ML IV ONE (12:50)
[2021-09-13] MEDS ORDERED: Sodium Chloride 0.9% 10 ML Syringe FLUSH PRN (12:50)
[2021-09-13] MEDS ORDERED: cefTRIAXone 2 GM in Sodium Chloride 0.9% 100 ML IV ONE (12:52)
[2021-09-13] MEDS ORDERED: methylPREDNISolone Sodium Succinate 125 MG/2 ML SDV IVPUSH ONE (12:52)
[2021-09-13] MEDS ORDERED: Ketorolac 30 MG/ML SDV IVPUSH ONE (12:52)
[2021-09-13] MEDS ORDERED: cefTRIAXone 2 GM AdvVial IV ONE (12:55)
[2021-09-13] MEDS ORDERED: Iopamidol 612 MG/ML 100 ML Bottle IVPUSH ONE (12:59)
[2021-09-13 15:20] VITALS: BP 132/87; PULSE 98
== END 2021-09-13 15:20 | disposition home or self-care (01) ==
LOC: JD.ED 12:25
DX: J03.90 Acute tonsillitis, unspecified (principal); B96.89 Other specified bacterial agents as the cause of diseases classified elsewhere; Z72.0 Tobacco use; Z86.16 Personal history of COVID-19
CPT/HCPCS: 36415; 70491; 80053; 85025; 86308; 87651; 96365; 96375; 99284; J0696; J1885; J2930; J7030; Q9967

== ENCOUNTER 2022-11-06 19:56 | Emergency (ER) | payer SELFPAY ==
[2022-11-06] MEDS ORDERED: Ketorolac 60 MG/2 ML SDV IM ONE (21:29)
[2022-11-06 22:10] VITALS: BP 104/92; PULSE 81
== END 2022-11-06 22:10 | disposition home or self-care (01) ==
LOC: JD.ED 19:56
DX: B34.9 Viral infection, unspecified (principal); Z86.16 Personal history of COVID-19; Z79.899 Other long term (current) drug therapy
CPT/HCPCS: 87651; 96372; 99283; J1885

== ENCOUNTER 2023-02-20 19:06 | Emergency (ER) | payer BC ==
[2023-02-20] MEDS ORDERED: cloNIDine 0.1 MG Tab PO ONE (19:26)
[2023-02-20 20:57] VITALS: BP 124/84; PULSE 82
== END 2023-02-20 20:53 | disposition home or self-care (01) ==
LOC: JD.ED 19:06
DX: S09.90XA Unspecified injury of head, initial encounter (principal); Z79.899 Other long term (current) drug therapy; Z86.16 Personal history of COVID-19; W22.8XXA Striking against or struck by other objects, initial encounter
CPT/HCPCS: 70450; 99284; A9270; 99282

== ENCOUNTER 2023-05-01 03:27 | Emergency (ER) | payer BC ==
[2023-05-01 03:34] VITALS: BP 120/74; PULSE 68
== END 2023-05-01 04:18 | disposition home or self-care (01) ==
LOC: JD.ED 03:27
DX: S61.257A Open bite of left little finger without damage to nail, initial encounter (principal); S61.251A Open bite of left index finger without damage to nail, initial encounter; S61.451A Open bite of right hand, initial encounter; W54.0XXA Bitten by dog, initial encounter; Z86.16 Personal history of COVID-19; Z79.899 Other long term (current) drug therapy
CPT/HCPCS: 99283

== ENCOUNTER 2023-05-25 20:40 | Emergency (ER) | payer BC ==
[2023-05-25] MEDS ORDERED: Sodium Chloride 0.9% 2,000 ML IV ONE (21:14)
[2023-05-25] MEDS ORDERED: Acetaminophen 325 MG Tab PO ONE (21:15)
[2023-05-25] MEDS ORDERED: Piperacillin/Tazobactam 4.5 GM in Sodium Chloride 0.9% 100 ML IV ONE (21:36)
[2023-05-25 21:44] LABS: EOSINOPHILS ABSOLUTE AUTO 0.4 K/mm3 (0.0-0.4); EOSINOPHILS PERCENT AUTO 6.5 % (0.0-6.0); HEMATOCRIT 38.4 % (42.0-52.0); HEMOGLOBIN 14.1 gm/dl (14.0-18.0); IMMATURE GRAN ABSOLUTE AUTO 0.02 K/mm3 (0.00-0.05); IMMATURE GRAN PERCENT AUTO 0.4 % (0.0-0.4); LYMPHOCYTES ABSOLUTE AUTO 0.8 K/mm3 (1.0-4.8); LYMPHOCYTES PERCENT AUTO 13.8 % (24.0-44.0); MEAN CORPUSCULAR HEMOGLOBIN 31.6 pg (28.0-32.0); MEAN CORPUSCULAR HGB CONC 36.7 g/dl (32.0-36.0); MEAN CORPUSCULAR VOLUME 86.1 fl (83.0-99.0); MEAN PLATELET VOLUME 9.1 fl (9.4-12.4); MONOCYTES ABSOLUTE AUTO 0.4 K/mm3 (0.0-0.8); MONOCYTES PERCENT AUTO 7.7 % (0.0-8.0); NEUTROPHILS PERCENT AUTO 71.6 % (41.0-71.0); PLATELET COUNT,PLT 250 K/mm3 (150-400); RED BLOOD CELL COUNT 4.46 M/mm3 (4.52-5.90); WHITE BLOOD CELL COUNT,WBC 5.56 K/mm3 (3.9-11.3)
[2023-05-25] MEDS ORDERED: Iopamidol 612 MG/ML 100 ML Bottle IVPUSH ONE (21:44)
[2023-05-25] MEDS ORDERED: Sodium Chloride 0.9% 10 ML Syringe FLUSH ONE (21:44)
[2023-05-25 22:09] LABS: ALBUMIN 3.5 g/dl (3.4-5.0); ANION GAP 14.8 (5-15); BILIRUBIN TOTAL 0.5 mg/dL (0.2-1.0); BUN/CREATININE RATIO 11.4 (14-18); CALCIUM 8.4 mg/dL (8.5-10.1); CREATININE 1.4 mg/dL (0.7-1.3); EST CRCL DRUG DOSING (CG) 78.21 mL/min; POTASSIUM,K 3.8 mEq/L (3.5-5.1); PROTEIN TOTAL,TP 7.2 g/dl (6.4-8.2)
[2023-05-25 22:11] LABS: LACTIC ACID 0.8 mmol/L (0.4-2.0)
[2023-05-25] MEDS ORDERED: diphenhydrAMINE 50 MG/ML SDV IVPUSH ONE (23:50)
[2023-05-26 02:15] VITALS: BP 104/65; PULSE 89
== END 2023-05-26 02:10 | disposition home or self-care (01) ==
LOC: JD.ED 20:40
DX: A41.9 Sepsis, unspecified organism (principal); Z86.16 Personal history of COVID-19
CPT/HCPCS: 36415; 73201; 80053; 83605; 85025; 85652; 86140; 87040; 87070; 87075; 87205; 96361; 96365; 96375; 99284; A9270; J1200; J2543; J3490; J7030; Q9967